=== PATIENT | female | born 2000 | race Caucasian/White ===

== ENCOUNTER 2024-08-17 18:15 | Emergency (ER) | payer OTHER, SELFPAY ==
[2024-08-17 19:06] VITALS: BP 125/85; PULSE 62; TEMP 36.8; O2SAT 100
== END 2024-08-17 19:09 | disposition left against medical advice (07) ==
PROVIDERS: Emergency Provider Emergency Medicine
DX: Z53.9 Procedure and treatment not carried out, unspecified reason (principal)